=== PATIENT | male | born 1945 | race Caucasian/White ===

== ENCOUNTER → 2016-07-27 | Outpatient (CLI) | payer MEDICARE, BC ==
[~2016-07-27] MED LIST: AMLODIPINE BESY10 MG PO; ASPIRIN81 MG PO; COREG6.25 MG PO; COZAAR100 MG PO; FERROUS SULFAT325 M1 PO; FISH OIL 1,2001 EACH PO; FLOMAX0.4 MG PO; GLUCOPHAGE1000 MG PO; HYDROCHLOROTHIA25 MG PO; LANTUS100 UNIT/1 SUBCUT; LIPITOR40 MG PO; LOPRESSOR25 MG PO; NITROSTAT0.4 MG SL; NORVASC10 M1 PO; NORVASC5 MG PO; NOVOLOG100 UNIT/1 SUBCUT; NOVOLOG100 UNIT/2 SUBCUT; PRILOSEC20 MG PO; ULTRAM50 MG PO; ZOCOR40 MG PO
== END | disposition short-term general hospital (02) ==
LOC: CLCARD 09:35
DX: I25.10 Atherosclerotic heart disease of native coronary artery without angina pectoris (principal); E78.5 Hyperlipidemia, unspecified; E11.21 Type 2 diabetes mellitus with diabetic nephropathy; R20.0 Anesthesia of skin; I25.9 Chronic ischemic heart disease, unspecified; I12.9 Hypertensive chronic kidney disease with stage 1 through stage 4 chronic kidney disease, or unspecified chronic kidney disease; E11.22 Type 2 diabetes mellitus with diabetic chronic kidney disease; N18.9 Chronic kidney disease, unspecified; R00.1 Bradycardia, unspecified; R94.31 Abnormal electrocardiogram [ECG] [EKG]

== ENCOUNTER 2016-07-29 22:48 | Observation (INO) | payer MEDICARE, BC ==
[~2016-07-29] VITALS: Ht 170.2 cm; Wt 112.4 kg
[~2016-07-29 22:48] MED LIST changes: -COREG6.25 MG PO; -FERROUS SULFAT325 M1 PO; -FLOMAX0.4 MG PO; -NORVASC5 MG PO; -ULTRAM50 MG PO
[2016-07-30] MEDS ORDERED: LIPITOR40 MG PO (00:31)
[2016-07-30] MEDS ORDERED: COREG6.25 MG PO (00:32)
[2016-07-30] MEDS ORDERED: FERROUS SULFAT325 M1 PO (00:32)
[2016-07-30] MEDS ORDERED: NORVASC5 MG PO (00:33)
[2016-07-30] MEDS ORDERED: FLOMAX0.4 MG PO (00:33)
[2016-07-30] MEDS ORDERED: NOVOLOG100 UNIT/2 SUBCUT ×2 (00:35→00:36)
[2016-07-30] MEDS ORDERED: ULTRAM50 MG PO (15:08)
== END 2016-07-30 15:50 | disposition short-term general hospital (02) ==
LOC: ER 22:48 → IP 07-30 00:45 → OBS 07-30 00:45 → IP 07-30 00:45
PROVIDERS: ADMIT Family Medicine
DX: R07.9 Chest pain, unspecified (principal); M94.0 Chondrocostal junction syndrome [Tietze]; I25.10 Atherosclerotic heart disease of native coronary artery without angina pectoris; E11.22 Type 2 diabetes mellitus with diabetic chronic kidney disease; I12.9 Hypertensive chronic kidney disease with stage 1 through stage 4 chronic kidney disease, or unspecified chronic kidney disease; N18.9 Chronic kidney disease, unspecified; Z85.038 Personal history of other malignant neoplasm of large intestine; Z87.442 Personal history of urinary calculi; Z87.891 Personal history of nicotine dependence; Z79.82 Long term (current) use of aspirin; Z79.899 Other long term (current) drug therapy; Z90.49 Acquired absence of other specified parts of digestive tract; Z98.890 Other specified postprocedural states
CPT/HCPCS: A9150; G0378; J1650; J1815; J2270; J2405; J8499

== ENCOUNTER → 2016-08-05 | Outpatient (CLI) | payer MEDICARE, BC ==
[~2016-08-05] MED LIST changes: +COREG6.25 MG PO; +FERROUS SULFAT325 M1 PO; +FLOMAX0.4 MG PO; +NORVASC5 MG PO; +ULTRAM50 MG PO
== END | disposition short-term general hospital (02) ==
LOC: CLORTH 10:58
DX: M17.11 Unilateral primary osteoarthritis, right knee (principal)